=== PATIENT | female | born 1990 ===

== ENCOUNTER 2018-02-21 04:27 | Emergency (ER) | payer OTHER ==
[2018-02-21 04:27] VITALS: BMI 25.0
[2018-02-21 05:48] LABS: BASO % 1.1 % (0.0-2.0); EOS # 0.1 K/uL (0.0-0.7); EOS % 2.5 % (0.0-4.0); HEMOGLOBIN 12.8 g/dL (12.0-16.0); LYMPH # 2.1 K/uL (1.0-4.3); LYMPH % 48.3 % (20.0-40.0); MEAN CORPUSCULAR HGB CONC 31.7 g/dL (33.0-37.0); MONO # 0.5 K/uL (0.0-0.8); MONO % 11.9 % (0.0-10.0); NEUT # 1.5 K/uL (1.8-7.0); NEUT % 36.2 % (50.0-75.0); NRBC % 0.1 % (0.0-0.0); RBC 4.94 Mil/uL (3.80-5.20); RED CELL DISTRIBUTION WIDTH 13.4 % (11.5-14.5); WHITE BLOOD COUNT 4.3 K/uL (4.8-10.8)
[2018-02-21 05:57] LABS: BLOOD UREA NITROGEN 17 mg/dl (7-17); CALCIUM 9.8 mg/dL (8.4-10.2); GFR NON-AFRICAN AMERICAN > 60
--- NOTE | 2018-02-21 06:08 | ED PDOC ---
HPI: Female Pain Time Seen by Provider: 02/21/18 05:08 Chief Complaint (Nursing): Abdominal Pain Chief Complaint (Provider): Abdominal Pain History Per: Patient History/Exam Limitations: no limitations Onset/Duration Of Symptoms: Persistent (x3 weeks) Current Symptoms Are (Timing): Still Present Additional Complaint(s): 27 year old female presents to the ED with complaints of pelvic pain and vaginal bleeding persistent for 3 weeks. Patient states she did not have her menses for 3 months until it spontaneously began on 01/28/18. She denies any chest pain, dizziness, shortness of breath, fever, chills, vomiting or diarrhea. PMD: Dr. Fawn Varner Past Medical History Reviewed: Historical Data, Nursing Documentation, Vital Signs Vital Signs: Last Vital Signs Temp 98.1 F 02/21/18 04:45 Pulse 86 02/21/18 04:45 Resp 16 02/21/18 04:45 BP 120/73 02/21/18 04:45 Pulse Ox 98 02/21/18 04:45 - Medical History PMH: Hyperlipidemia Other PMH: ovarian cysts - Surgical History Surgical History: No Surg Hx - Family History Family History: States: Unknown Family Hx, Diabetes (type I (mother, father, brother)), Hypertension - Immunization History Hx Tetanus Toxoid Vaccination: Yes Hx Influenza Vaccination: No Hx Pneumococcal Vaccination: No - Home Medications Home Medications: Ambulatory Orders Medication Instructions Recorded Sulfamethoxazole/Trimethoprim 1 tab PO BID #14 tab 05/20/16 [Bactrim DS 800 mg-160 mg] Nitrofurantoin Macrocrystals 100 mg PO BID #10 cap 07/16/16 [Macrobid] Cephalexin [Keflex] 500 mg PO BID #14 capsule 05/29/17 Nitrofurantoin Macrocrystals 100 mg PO BID #10 cap 02/21/18 [Macrobid] - Allergies Allergies/Adverse Reactions: Allergies Allergy/AdvReac Type Severity Reaction Status Date / Time No Known Allergies Allergy Verified 09/16/16 09:09 Review of Systems ROS Statement: Except As Marked, All Systems Reviewed And Found Negative Constitutional: Negative for: Fever, Chills Cardiovascular: Negative for: Chest Pain Respiratory: Negative for: Shortness of Breath Gastrointestinal: Negative for: Vomiting, Diarrhea Genitourinary Female: Positive for: Vaginal Bleeding, Pelvic Pain Neurological: Negative for: Dizziness Physical Exam - Reviewed Nursing Documentation Reviewed: Yes Vital Signs Reviewed: Yes - Physical Exam Appears: Positive for: Well, Non-toxic, No Acute Distress Head Exam: Positive for: ATRAUMATIC, NORMAL INSPECTION, NORMOCEPHALIC Skin: Positive for: Normal Color Eye Exam: Positive for: Normal appearance ENT: Positive for: Normal ENT Inspection Neck: Positive for: Normal Cardiovascular/Chest: Positive for: Regular Rate, Rhythm Respiratory: Positive for: Normal Breath Sounds. Negative for: Respiratory Distress Gastrointestinal/Abdominal: Positive for: Normal Exam, Soft. Negative for: Tenderness Extremity: Positive for: Normal ROM (upper/lower) Neurologic/Psych: Positive for: Alert (x3), Oriented. Negative for: Motor/ Sensory Deficits - Laboratory Results Result Diagrams: 02/21/18 05:42 02/21/18 05:42 - ECG O2 Sat by Pulse Oximetry: 98 (RA) Pulse Ox Interpretation: Normal Medical Decision Making Medical Decision Making: Initial Impression: pelvic pain; vaginal bleeding Differential Diagnosis includes but not limited to: uterine fibroids; dysfunctional uterine bleeding (DUB); Initial Plan: * BMP * Urine * Urine dipstick * CBC * US pelvis/transvaginal Scribe Attestation: Documented by Gricel Winn, acting as a scribe for Eric Urena MD. Provider Scribe Attestation: All medical record entries made by the Scribe were at my direction and personally dictated by me. I have reviewed the chart and agree that the record accurately reflects my personal performance of the history, physical exam, medical decision making, and the department course for this patient. I have also personally directed, reviewed, and agree with the discharge instructions and disposition. Time: 07 -- Patient endorsed to Dr. Clark, pending US. Scribe Attestation: Documented by Jose Baum acting as a scribe for Dr. Eric Urena MD. Provider Scribe Attestation: All medical record entries made by the Scribe were at my direction and personally dictated by me. I have reviewed the chart and agree that the record accurately reflects my personal performance of the medical decision making for this patient. I have also personally directed, reviewed, and agree with the discharge instructions and disposition. Disposition - Clinical Impression Clinical Impression: Vaginal bleeding, abnormal, UTI (urinary tract infection) - Patient ED Disposition Is Patient to be Admitted: Transfer of Care Counseled Patient/Family Regarding: Studies Performed, Diagnosis - Disposition [facility] - [facility] Disposition: Transfer of Care Disposition Time: 20:57 Condition: STABLE Additional Instructions: Return if not better in 3 days. Prescriptions: Nitrofurantoin Macrocrystals [Macrobid] 100 mg PO BID #10 cap Instructions: Urinary Tract Infection, Adult (DC), Dysfunctional Uterine Bleeding (ED) Patient Signed Over To: Andrew Clark
--- NOTE | 2018-02-21 07:40 | ED PDOC ---
- Laboratory Results Result Diagrams: 02/21/18 05:42 02/21/18 05:42 Interpretation Of Abn Labs: no acute Urine dip results: Positive for: Leukocyte Esterase - ECG O2 Sat by Pulse Oximetry: 98 (RA) Pulse Ox Interpretation: Normal - CT Scan/US US Other Rad Studies (CT/US): Read By Radiologist Other Rad Interpretation: no acute - Progress ED Course And Treament: 1130: Stable. AAOx3. Pain free. Tolerated PO. Fu with pcp. Medical Decision Making Medical Decision Making: Time: 0700 -- Patient endorsed to me by Dr. Urena. Patient is a 27 y/o who female presents to the ED complaining of vaginal bleeding after three months of no period. Patient is not , pending US. Scribe Attestation: Documented by Jose Baum acting as a scribe for Dr. Andrew Clark MD. Provider Scribe Attestation: All medical record entries made by the Scribe were at my direction and personally dictated by me. I have reviewed the chart and agree that the record accurately reflects my personal performance of the history, physical exam, medical decision making, and the department course for this patient. I have also personally directed, reviewed, and agree with the discharge instructions and disposition. Disposition - Clinical Impression Clinical Impression: Vaginal bleeding, abnormal, UTI (urinary tract infection) - POA Present On Arrival: None - Disposition [facility] - 02/23/18 Disposition: Routine/Home Disposition Time: 11:31 Condition: STABLE Additional Instructions: Return if not better in 3 days. Prescriptions: Nitrofurantoin Macrocrystals [Macrobid] 100 mg PO BID #10 cap Instructions: Urinary Tract Infection, Adult (DC), Dysfunctional Uterine Bleeding (ED) Forms: [employer] (Slovak)
--- NOTE | 2018-02-21 11:41 | US ---
Date of service: 02/21/2018 HISTORY: suprapubic pain vaginal bleeding COMPARISON: None available. TECHNIQUE: Grayscale, color Doppler and spectral evaluation the pelvis performed transabdominally and transvaginally. FINDINGS: UTERUS: Measures 6.7 x 4.0 x 3.3 cm. Anteverted. Normal in size and appearance. No fibroid or other mass lesion seen. ENDOMETRIUM: Measures 15 mm in diameter. Unremarkable. CERVIX: Nabothian cyst. No cervical abnormality identified. RIGHT OVARY: Measures 3.5 x 3.6 x 1.9 cm compatible with volume of 12.3 cc. Multi follicular appearance. Normal flow. LEFT OVARY: Measures 3.4 x 2.7 x 2.5 cm compatible with volume of 12.0 cc. Multi follicular appearance. Normal flow. FREE FLUID: No significant free fluid noted. OTHER FINDINGS: None. IMPRESSION: Prominent ovaries bilaterally with multi follicular appearance can be seen in the setting of polycystic ovaries. Clinical correlation is recommend.
[2018-02-21 11:48] VITALS: BP 131/66; PULSE 78; RESP 15; TEMP 98.4
[2018-02-21 20:58] VITALS: O2SAT 98
== END 2018-02-21 11:47 | disposition home or self-care (01) ==
LOC: H.ER 04:27
DX: N93.9 Abnormal uterine and vaginal bleeding, unspecified (principal); N39.0 Urinary tract infection, site not specified; E78.5 Hyperlipidemia, unspecified; N83.209 Unspecified ovarian cyst, unspecified side

== ENCOUNTER 2018-03-15 20:51 | Emergency (ER) | payer OTHER ==
[2018-03-15 20:51] VITALS: BMI 25.0
[2018-03-15] MEDS ORDERED: cefTRIAXone (Rocephin) 250 mg Inj IM STA (21:43)
--- NOTE | 2018-03-15 22:02 | ED PDOC ---
HPI: Abdomen Time Seen by Provider: 03/15/18 21:36 Chief Complaint (Nursing): Abdominal Pain Chief Complaint (Provider): Abdominal Pain History Per: Patient History/Exam Limitations: no limitations Onset/Duration Of Symptoms: Days (x1) Outside of [place] travel?: No Current Symptoms Are (Timing): Still Present Location Of Pain/Discomfort: RLQ, LLQ Additional Complaint(s): 27 y/o female with a PMHx of ovarian cysts presents to the ED for evaluation of lower abdominal pain and dysuria, onset yesterday. Patient notes she was recently treated for a UTI on 02/21/2018 for which she completed prescribed course of Macrobid. At that time, patient requested STD testing which was not performed while here in the ED. However, patient reports pain persists and is requesting an STD prophylaxis. Patient reports she has not been sexually active for one year and has no history of STDs. Otherwise: (-) medications prior to arrival, (-) urinary frequency, (-) urinary urgency, (-) fever, (-) chills, (-) nausea, (-) vomiting, (-) diarrhea, (-) flank pain, (-) back pain, (-) shortness of breath, (-) cough. PMD: Fawn Varner LNMP: 02/27/2018 Last Menstral Period: 02/27/2018 Past Medical History Reviewed: Historical Data, Nursing Documentation, Vital Signs Vital Signs: Last Vital Signs Temp 98.7 F 03/15/18 21:21 Pulse 106 H 03/15/18 21:21 Resp 16 03/15/18 21:21 BP 110/70 03/15/18 21:21 Pulse Ox 98 03/15/18 22:16 - Medical History PMH: Hyperlipidemia Other PMH: Ovarian Cysts - Surgical History Surgical History: No Surg Hx - Family History Family History: States: Diabetes (type I (mother, father, brother)), Hypertension - Social History Current smoker - smoking cessation education provided: No Alcohol: None Drugs: Denies - Immunization History Hx Tetanus Toxoid Vaccination: Yes Hx Influenza Vaccination: No Hx Pneumococcal Vaccination: No - Home Medications Home Medications: Ambulatory Orders Medication Instructions Recorded Sulfamethoxazole/Trimethoprim 1 tab PO BID #14 tab 05/20/16 [Bactrim DS 800 mg-160 mg] Nitrofurantoin Macrocrystals 100 mg PO BID #10 cap 07/16/16 [Macrobid] Cephalexin [Keflex] 500 mg PO BID #14 capsule 05/29/17 Nitrofurantoin Macrocrystals 100 mg PO BID #10 cap 02/21/18 [Macrobid] - Allergies Allergies/Adverse Reactions: Allergies Allergy/AdvReac Type Severity Reaction Status Date / Time No Known Allergies Allergy Verified 03/15/18 21:24 Review of Systems ROS Statement: Except As Marked, All Systems Reviewed And Found Negative Respiratory: Negative for: Cough, Shortness of Breath Gastrointestinal: Positive for: Abdominal Pain. Negative for: Nausea, Vomiting , Diarrhea Genitourinary Female: Positive for: Dysuria. Negative for: Frequency Musculoskeletal: Negative for: Back Pain Physical Exam - Reviewed Nursing Documentation Reviewed: Yes Vital Signs Reviewed: Yes - Physical Exam Comments: GENERAL APPEARANCE: Patient is awake, alert, oriented x 3, in no acute distress. SKIN: Warm, dry; (-) cyanosis. EYES: (-) conjunctival pallor. ENMT: Mucous membranes _moist. Airway patent: (-) stridor. Pharynx: (-) swelling, (-) erythema. NECK: (-) tenderness, (-) stiffness, (-) lymphadenopathy. CHEST AND RESPIRATORY: (-) wheezing; (-) rales, (-) rhonchi, (-) rub; breath sounds equal bilaterally. HEART AND CARDIOVASCULAR: (-) irregularity; (-) murmur, (-) gallop ABDOMEN AND GI: Soft; (+) suprapubic tenderness. (-) CVA tenderness EXTREMITIES: (-) deformity, (-) edema. NEURO AND PSYCH: Mental status as above; (-) focal findings. - Laboratory Results Urine POC: Negative - ECG O2 Sat by Pulse Oximetry: 98 (RA) Pulse Ox Interpretation: Normal Medical Decision Making Medical Decision Making: Time: 2142 Impression: Suprapubic discomfort, STD testing Plan: -- ED Urine Test -- Chlamydia/GC RNA, TMA -- Rocephin 250 mg IM -- Zithromax 1000 mg PO -- Urine Culture -- Urinalysis 2305 Repeat HR: __ U/A reviewed, (-) evidence of UTI On re-evaluation, patient reports improvement of symptoms. On exam, patient remains AAOx3, in no acute distress. Lungs clear to auscultation, cardiac RRR, abdomen soft, non-tender, repeat neuro exam shows no focal findings. VSS, stable for discharge. Lab/Diagnostic results d/w the patient in great detail. Diagnosis of STD prophylaxis, dysuria d/w the patient. Based on history, exam and diagnostic results, plan will be for outpatient follow up. Patient instructed to follow-up with pmd / referral provided / the clinic in 1- 2 days without fail. Advised to take medication as prescribed. Return to the emergency room at any time for any new or worsening symptoms. Patient states she fully agrees with and understands discharge instructions. States that she agrees with the plan and disposition. Verbalized and repeated discharge instructions and plan. I have given the patient opportunity to ask any additional questions. Scribe Attestation: Documented by Jose Baum acting as a scribe for Laure Garcia PA-C. Provider Scribe Attestation: All medical record entries made by the Scribe were at my direction and personally dictated by me. I have reviewed the chart and agree that the record accurately reflects my personal performance of the history, physical exam, medical decision making, and the department course for this patient. I have also personally directed, reviewed, and agree with the discharge instructions and disposition. Disposition - Clinical Impression Clinical Impression: Possible exposure to STD, Dysuria - Patient ED Disposition Is Patient to be Admitted: No Counseled Patient/Family Regarding: Studies Performed, Diagnosis, Need For Followup, Rx Given - Disposition Referrals: Fawn Varner MD [Family Provider] - [facility]] Disposition: Routine/Home Disposition Time: 23:10 Condition: STABLE Additional Instructions: The emergency medical care you received today was directed towards the acute presenting symptoms. If you were prescribed any medication, please fill it and give as directed. It may take several days for your symptoms to resolve. Return to the Emergency Department at any time if symptoms worsen, do not improve, or if any other problems arise. Please contact your doctor in 2 days for re-evaluation and follow up / or call one of the physicians/clinics you have been referred to that are listed on the Patient Visit Information form that is included in your discharge packet. Bring any paperwork you were given at discharge with you along with any medications to your follow up visit. Our treatment cannot replace ongoing medical care by a primary care provider (PCP) outside of the emergency department. Instructions: Dysuria, Adult (DC), Sexually-Transmitted Diseases, STD Prevention Forms: [employer] (Swazi) Print Language: CAMEROONIAN - POA Present On Arrival: None Results - Lab Results Lab Results: 03/15/18 22:40 Urine Color Yellow Urine Clarity Slighty-cloudy Urine pH 5.0 Ur Specific [place] 1.029 Urine Protein 30 Urine Glucose (UA) Neg Urine Ketones Negative Urine Blood Negative Urine Nitrate Negative Urine Bilirubin Negative Urine Urobilinogen 0.2-1.0 Ur Leukocyte Esterase Neg Urine RBC (Auto) 2 Urine Microscopic WBC 2 Ur Squamous Epith Cells 3
[2018-03-15 22:53] LABS: SQUAMOUS EPITHIAL 3 /hpf (0-5); URINE BILIRUBIN NEGATIVE (NEGATIVE); URINE BLOOD NEGATIVE (NEGATIVE); URINE CLARITY SLIGHTY-CLOUDY (Clear); URINE COLOR YELLOW (YELLOW); URINE GLUCOSE (UA) NEG (Normal); URINE LEUKOCYTE ESTERASE NEG Leu/uL (Negative); URINE PROTEIN 30 mg/dL (NEGATIVE); URINE UROBILINOGEN 0.2-1.0 mg/dL (0.2-1.0)
[2018-03-16 00:42] VITALS: BP 109/64; PULSE 89; RESP 18; TEMP 98.6; O2SAT 100
== END 2018-03-15 23:55 | disposition home or self-care (01) ==
LOC: H.ER 20:51
DX: R30.0 Dysuria (principal); Z20.2 Contact with and (suspected) exposure to infections with a predominantly sexual mode of transmission; E78.5 Hyperlipidemia, unspecified
CPT/HCPCS: 81003; 81025; 87086; 87491; 87591; 96372; 99283; J0696